=== PATIENT | male | born 1990 | race Caucasian/White ===

== ENCOUNTER 2018-01-21 01:20 | Inpatient (IN) | payer MEDICAID, BC, SELFPAY, OTHER ==
[2018-01-21] MEDS: LORazepam 2 MG TAB PO (03:34)
[2018-01-21 03:56] LABS: HEMATOCRIT 44.4 % (42.0-52.0); HEMOGLOBIN 14.3 g/dl (13.5-17.5); MEAN CORPUSCULAR HEMOGLOBIN 27.2 pg (27.0-33.0); MEAN CORPUSCULAR HGB CONC 32.2 g/dl (32.0-36.5); MEAN CORPUSCULAR VOLUME 84.4 fl (80.0-96.0); PLATELET COUNT, AUTOMATED 219 10^3/uL (150-450); RED BLOOD COUNT 5.26 10^6/uL (4.30-6.10); RED CELL DISTRIBUTION WIDTH 12.3 % (11.5-14.5); WHITE BLOOD COUNT 9.1 10^3/uL (4.0-10.0)
[2018-01-21 04:27] LABS: AMPHETAMINES LEVEL URINE NEGATIVE (NEGATIVE); BARBITURATES URINE NEGATIVE (NEGATIVE); BENZODIAZEPINES URINE NEGATIVE (NEGATIVE); CANNABINOIDS URINE POSITIVE (NEGATIVE); COCAINE METABOLITE URINE NEGATIVE (NEGATIVE); METHADONE URINE NEGATIVE (NEGATIVE); OPIATES URINE NEGATIVE (NEGATIVE); PHENCYCLIDINE URINE NEGATIVE (NEGATIVE)
[2018-01-21 04:34] LABS: ACETAMINOPHEN LEVEL < 2.0 UG/ML (10.0-30.0); ALBUMIN 4.5 GM/DL (3.2-5.2); ALKALINE PHOSPHATASE 46 U/L (45-117); ALT/SGPT 19 U/L (12-78); ANION GAP 7 MEQ/L (8-16); AST/SGOT 8 U/L (7-37); BILIRUBIN,DIRECT 0.2 MG/DL (0.0-0.2); BILIRUBIN,TOTAL 0.6 MG/DL (0.2-1.0); BLOOD UREA NITROGEN 11 MG/DL (7-18); CALCIUM LEVEL 8.6 MG/DL (8.5-10.1); CARBON DIOXIDE LEVEL 31 MEQ/L (21-32); CHLORIDE LEVEL 105 MEQ/L (98-107); ETHYL ALCOHOL (ETHANOL) < 0.003 % (0.000-0.010); GLOMERULAR FILTRATION RATE > 60.0 (>60); GLUCOSE, FASTING 85 MG/DL (70-100); SALICYLATE LEVEL < 1.7 MG/DL (5.0-30.0); SODIUM LEVEL 143 MEQ/L (136-145); TOTAL PROTEIN 7.5 GM/DL (6.4-8.2); VALPROIC ACID (DEPAKOTE) 80.2 UG/ML (50.0-100.0)
[2018-01-21] MEDS ORDERED: ACETAMINOPHEN TAB 650MG DOSE (2X325MG) PO (05:30)
[2018-01-21] MEDS ORDERED: MAALOX 30 ML SUSP *UDC PO (05:30)
[2018-01-21] MEDS ORDERED: ALBUTEROL 90 MCG/ACT 8GM HFA INHALER INH (09:00)
[2018-01-21] MEDS: VITAMIN D 1,000 INTERNATIONAL UNITS TABLET PO (10:24)
[2018-01-21] MEDS: NICOTINE 14 MG/24 HR TRANSDERMAL TD (10:34)
[2018-01-21] MEDS: hydrOXYzine 50 MG TAB PO (15:47)
[2018-01-21] MEDS: DIVALPROEX 250MG *ER* TAB PO (20:52)
[2018-01-21] MEDS: traZODone 50 MG TAB PO (20:52)
[2018-01-21] MEDS: QUEtiapine FUMARATE 50 MG TAB PO (20:52)
[2018-01-22] MEDS: VITAMIN D 1,000 INTERNATIONAL UNITS TABLET PO (08:19)
[2018-01-22] MEDS: NICOTINE 14 MG/24 HR TRANSDERMAL TD (08:19)
[2018-01-22] MEDS: INFLUENZA QUADRIVALENT PF VACCINE 0.5ML SYRINGE (90686) IM (08:20)
[2018-01-22] MEDS: hydrOXYzine 50 MG TAB PO (17:33)
[2018-01-22] MEDS: QUEtiapine FUMARATE 50 MG TAB PO (21:13)
[2018-01-22] MEDS: traZODone 50 MG TAB PO (21:13)
[2018-01-22] MEDS: DIVALPROEX 250MG *ER* TAB PO (21:13)
[2018-01-23] MEDS: hydrOXYzine 50 MG TAB PO ×3 (03:15→17:11)
[2018-01-23] MEDS: NICOTINE 14 MG/24 HR TRANSDERMAL TD (08:57)
[2018-01-23] MEDS: VITAMIN D 1,000 INTERNATIONAL UNITS TABLET PO (08:57)
[2018-01-23] MEDS: DIVALPROEX 250MG *ER* TAB PO (22:55)
[2018-01-23] MEDS: QUEtiapine FUMARATE 100 MG TAB PO (22:55)
[2018-01-24] MEDS: NICOTINE 14 MG/24 HR TRANSDERMAL TD (09:21)
[2018-01-24] MEDS: VITAMIN D 1,000 INTERNATIONAL UNITS TABLET PO (09:21)
[2018-01-24] MEDS: QUEtiapine FUMARATE 50 MG TAB PO ×2 (11:35→22:55)
[2018-01-24] MEDS: PROPRANOLOL 10 MG TAB PO ×3 (11:35→22:54)
[2018-01-24] MEDS: hydrOXYzine 50 MG TAB PO ×2 (16:43→22:54)
[2018-01-24] MEDS: traZODone 50 MG TAB PO (22:54)
[2018-01-24] MEDS: DIVALPROEX 250MG *ER* TAB PO (22:54)
[2018-01-25] MEDS: VITAMIN D 1,000 INTERNATIONAL UNITS TABLET PO (08:55)
[2018-01-25] MEDS: QUEtiapine FUMARATE 50 MG TAB PO (08:55)
[2018-01-25] MEDS: hydrOXYzine 50 MG TAB PO ×2 (08:55→15:41)
[2018-01-25] MEDS: NICOTINE 14 MG/24 HR TRANSDERMAL TD (08:56)
[2018-01-25] MEDS: PROPRANOLOL 10 MG TAB PO ×3 (08:56→21:32)
[2018-01-25] MEDS: LITHIUM CARBONATE 300 MG CAP PO ×2 (11:56→21:32)
[2018-01-25] MEDS: QUEtiapine FUMARATE 200 MG TAB PO (21:32)
[2018-01-25] MEDS: traZODone 100 MG TAB PO (22:03)
[2018-01-26] MEDS: VITAMIN D 1,000 INTERNATIONAL UNITS TABLET PO (09:15)
[2018-01-26] MEDS: QUEtiapine FUMARATE 50 MG TAB PO (09:15)
[2018-01-26] MEDS: NICOTINE 14 MG/24 HR TRANSDERMAL TD (09:16)
[2018-01-26] MEDS: hydrOXYzine 50 MG TAB PO (09:16)
[2018-01-26] MEDS: PROPRANOLOL 10 MG TAB PO ×3 (09:17→21:12)
[2018-01-26] MEDS: LITHIUM CARBONATE 300 MG CAP PO ×4 (09:17→21:12)
[2018-01-26] MEDS: LORazepam 0.5 MG TAB PO ×2 (12:05→22:29)
[2018-01-26] MEDS: QUEtiapine FUMARATE 100 MG TAB PO (21:11)
[2018-01-26] MEDS: traZODone 100 MG TAB PO (22:29)
[2018-01-27 07:51] LABS: LITHIUM LEVEL 0.67 MEQ/L (0.60-1.20)
[2018-01-27] MEDS: QUEtiapine FUMARATE 50 MG TAB PO (08:42)
[2018-01-27] MEDS: PROPRANOLOL 10 MG TAB PO ×2 (08:42→21:39)
[2018-01-27] MEDS: LORazepam 0.5 MG TAB PO ×2 (08:42→21:40)
[2018-01-27] MEDS: VITAMIN D 1,000 INTERNATIONAL UNITS TABLET PO (08:43)
[2018-01-27] MEDS: NICOTINE 14 MG/24 HR TRANSDERMAL TD (08:43)
[2018-01-27] MEDS: LITHIUM CARBONATE 300 MG CAP PO ×4 (08:43→21:38)
[2018-01-27] MEDS: NICOTINE 21MG/24HR 1 EA TRANSDERMAL TD (10:36)
[2018-01-27] MEDS: QUEtiapine FUMARATE 100 MG TAB PO (21:38)
[2018-01-27] MEDS: traZODone 100 MG TAB PO (23:21)
[2018-01-28] MEDS: QUEtiapine FUMARATE 50 MG TAB PO (08:21)
[2018-01-28] MEDS: VITAMIN D 1,000 INTERNATIONAL UNITS TABLET PO (08:21)
[2018-01-28] MEDS: LITHIUM CARBONATE 300 MG CAP PO ×4 (08:21→21:53)
[2018-01-28] MEDS: PROPRANOLOL 10 MG TAB PO ×4 (08:22→21:53)
[2018-01-28] MEDS: LORazepam 0.5 MG TAB PO ×2 (08:22→16:02)
[2018-01-28] MEDS: NICOTINE 21MG/24HR 1 EA TRANSDERMAL TD (08:22)
[2018-01-28] MEDS: QUEtiapine FUMARATE 100 MG TAB PO (21:54)
[2018-01-28] MEDS: traZODone 100 MG TAB PO (22:52)
[2018-01-29] MEDS: hydrOXYzine 50 MG TAB PO ×2 (06:44→22:46)
[2018-01-29] MEDS: LORazepam 0.5 MG TAB PO ×2 (06:44→16:42)
[2018-01-29 07:24] LABS: LITHIUM LEVEL 0.85 MEQ/L (0.60-1.20)
[2018-01-29] MEDS: NICOTINE 21MG/24HR 1 EA TRANSDERMAL TD (09:15)
[2018-01-29] MEDS: PROPRANOLOL 10 MG TAB PO ×4 (09:16→22:00)
[2018-01-29] MEDS: LITHIUM CARBONATE 300 MG CAP PO ×4 (09:16→22:00)
[2018-01-29] MEDS: VITAMIN D 1,000 INTERNATIONAL UNITS TABLET PO (09:16)
[2018-01-29] MEDS: QUEtiapine FUMARATE 50 MG TAB PO (09:16)
[2018-01-29] MEDS: QUEtiapine FUMARATE 100 MG TAB PO (22:00)
[2018-01-29] MEDS: traZODone 100 MG TAB PO (22:46)
[2018-01-29] MEDS: traZODone 50 MG TAB PO (23:15)
[2018-01-30] MEDS: LORazepam 0.5 MG TAB PO (08:29)
[2018-01-30] MEDS: PROPRANOLOL 10 MG TAB PO ×4 (08:29→21:41)
[2018-01-30] MEDS: VITAMIN D 1,000 INTERNATIONAL UNITS TABLET PO (08:29)
[2018-01-30] MEDS: QUEtiapine FUMARATE 50 MG TAB PO (08:29)
[2018-01-30] MEDS: LITHIUM CARBONATE 300 MG CAP PO ×2 (08:30→12:59)
[2018-01-30] MEDS: NICOTINE 21MG/24HR 1 EA TRANSDERMAL TD (08:30)
[2018-01-30] MEDS: hydrOXYzine 50 MG TAB PO (17:06)
[2018-01-30] MEDS: QUEtiapine FUMARATE 100 MG TAB PO (21:40)
[2018-01-30] MEDS: traZODone 50 MG TAB PO (23:20)
[2018-01-31] MEDS: QUEtiapine FUMARATE 50 MG TAB PO (08:27)
[2018-01-31] MEDS: VITAMIN D 1,000 INTERNATIONAL UNITS TABLET PO (08:27)
[2018-01-31] MEDS: PROPRANOLOL 10 MG TAB PO ×4 (08:28→22:00)
[2018-01-31] MEDS: NICOTINE 21MG/24HR 1 EA TRANSDERMAL TD (08:28)
[2018-01-31] MEDS: hydrOXYzine 50 MG TAB PO (08:28)
[2018-01-31] MEDS ORDERED: PILL CRUSHER/CUTTER 1 EACH XX (10:30)
[2018-01-31] MEDS: LORazepam 1 MG TAB PO (12:56)
[2018-01-31] MEDS: LITHIUM CARBONATE 600 MG CAP PO (21:58)
[2018-01-31] MEDS: QUEtiapine FUMARATE 200 MG TAB PO (21:59)
[2018-01-31] MEDS: traZODone 50 MG TAB PO (22:44)
[2018-02-01 07:45] LABS: LITHIUM LEVEL 0.72 MEQ/L (0.60-1.20)
[2018-02-01] MEDS: NICOTINE 21MG/24HR 1 EA TRANSDERMAL TD (08:25)
[2018-02-01] MEDS: VITAMIN D 1,000 INTERNATIONAL UNITS TABLET PO (08:26)
[2018-02-01] MEDS: PROPRANOLOL 10 MG TAB PO ×4 (08:26→22:09)
[2018-02-01] MEDS: QUEtiapine FUMARATE 50 MG TAB PO (08:26)
[2018-02-01] MEDS: LORazepam 1 MG TAB PO (13:02)
[2018-02-01] MEDS: LITHIUM CARBONATE 600 MG CAP PO (22:08)
[2018-02-01] MEDS: QUEtiapine FUMARATE 200 MG TAB PO (22:09)
[2018-02-01] MEDS: traZODone 50 MG TAB PO (23:05)
[2018-02-02 07:43] LABS: LITHIUM LEVEL 0.76 MEQ/L (0.60-1.20)
[2018-02-02] MEDS: QUEtiapine FUMARATE 50 MG TAB PO (09:06)
[2018-02-02] MEDS: LORazepam 1 MG TAB PO (09:06)
[2018-02-02] MEDS: VITAMIN D 1,000 INTERNATIONAL UNITS TABLET PO (09:06)
[2018-02-02] MEDS: PROPRANOLOL 10 MG TAB PO ×4 (09:07→21:51)
[2018-02-02] MEDS: NICOTINE 21MG/24HR 1 EA TRANSDERMAL TD (09:08)
[2018-02-02] MEDS: QUEtiapine FUMARATE 200 MG TAB PO (21:51)
[2018-02-02] MEDS: LITHIUM CARBONATE 600 MG CAP PO (21:51)
[2018-02-02] MEDS: traZODone 50 MG TAB PO (23:02)
[2018-02-03] MEDS: NICOTINE 21MG/24HR 1 EA TRANSDERMAL TD (08:32)
[2018-02-03] MEDS: VITAMIN D 1,000 INTERNATIONAL UNITS TABLET PO (08:32)
[2018-02-03] MEDS: PROPRANOLOL 10 MG TAB PO ×4 (08:33→21:33)
[2018-02-03] MEDS: FLUoxetine 10 MG CAP PO (10:53)
[2018-02-03] MEDS: MOM 30ML SUSPENSION UDC PO (13:55)
[2018-02-03] MEDS: ONDANSETRON 4 MG ORAL DISINTEGRATING TAB (Q0162 PER 1MG) PO (14:16)
[2018-02-03] MEDS: DOCUSATE SODIUM 100 MG CAP PO ×2 (16:06→21:33)
[2018-02-03] MEDS: QUEtiapine FUMARATE 200 MG TAB PO (21:32)
[2018-02-03] MEDS: LITHIUM CARBONATE 600 MG CAP PO (21:34)
[2018-02-03] MEDS: traZODone 50 MG TAB PO (22:12)
[2018-02-04 07:30] LABS: LITHIUM LEVEL 0.62 MEQ/L (0.60-1.20)
[2018-02-04] MEDS: PROPRANOLOL 10 MG TAB PO ×2 (08:11→12:15)
[2018-02-04] MEDS: VITAMIN D 1,000 INTERNATIONAL UNITS TABLET PO (08:11)
[2018-02-04] MEDS: DOCUSATE SODIUM 100 MG CAP PO (08:11)
[2018-02-04] MEDS: NICOTINE 21MG/24HR 1 EA TRANSDERMAL TD (08:12)
[2018-02-04] MEDS: FLUoxetine 10 MG CAP PO (08:12)
== END 2018-02-04 14:00 | disposition home or self-care (01) | DRG 753 ==
LOC: M PSY 01-29 21:47 → M ED 01:20 → M ED INP 05:26 → M PSY 08:20
DX: F31.9 Bipolar disorder, unspecified (principal); R45.851 Suicidal ideations; F41.1 Generalized anxiety disorder; F12.90 Cannabis use, unspecified, uncomplicated; J45.909 Unspecified asthma, uncomplicated; G47.00 Insomnia, unspecified; Z79.899 Other long term (current) drug therapy